=== PATIENT | male | born 1990 | race African-American/Black ===

== ENCOUNTER 2017-03-11 04:24 | Emergency (ER) | payer SELFPAY ==
[2017-03-11] MEDS ORDERED: Ketorolac Tromethamine 30 MG/ML VIAL ONE (04:59)
== END 2017-03-11 05:19 | disposition home or self-care (01) ==
LOC: ERS 04:24
DX: K08.89 Other specified disorders of teeth and supporting structures (principal); I10 Essential (primary) hypertension
CPT/HCPCS: 96372; J1885

== ENCOUNTER 2017-07-19 12:46 | Emergency (ER) | payer SELFPAY ==
[2017-07-19] MEDS ORDERED: Bupivacaine 0.5% 10 ML VIAL ONE (14:13)
[2017-07-19] MEDS ORDERED: Lidocaine 2% 10 ML INJ ONE (14:13)
== END 2017-07-19 15:13 | disposition home or self-care (01) ==
LOC: ERS 12:46
DX: K04.7 Periapical abscess without sinus (principal); I10 Essential (primary) hypertension
CPT/HCPCS: 41800; J3490

== ENCOUNTER 2017-09-28 13:24 | Emergency (ER) | payer SELFPAY | END 2017-09-28 15:12 | disposition home or self-care (01) | LOC: ERS 13:24 | DX: S90.211A Contusion of right great toe with damage to nail, initial encounter (principal); W22.8XXA Striking against or struck by other objects, initial encounter | CPT/HCPCS: 99283 ==

== ENCOUNTER 2018-05-30 17:12 | Emergency (ER) | payer SELFPAY | END 2018-05-30 17:44 | disposition home or self-care (01) | LOC: SCSER 17:12 | DX: M79.641 Pain in right hand (principal) | CPT/HCPCS: 99281 ==

== ENCOUNTER 2018-07-02 07:03 | Emergency (ER) | payer SELFPAY ==
[2018-07-02 08:08] LABS: Bilirubin Negative (Negative); Blood, Urine Negative (Negative); Clarity CLEAR (Clear); Glucose, Urine (Dipstick) Negative (Negative); Leukocyte Negative (Negative); Nitrite Negative (Negative); Protein, Urine (Dipstick) Negative (Neg-Trace); Specific Gravity, Urine 1.026 (1.002-1.036); pH, Urine 6.5 (5.0-9.0)
[2018-07-02 08:14] LABS: ALT (SGPT) 16 U/L (8-55); AST (SGOT) 21 U/L (5-34); Albumin 3.7 g/dL (3.5-5.0); Alkaline Phosphatase 28 U/L (40-150); Anion Gap 8 mmol/L (10-20); BUN (Urea Nitrogen) 15 mg/dL (8.9-20.6); Bilirubin, Total 0.7 mg/dL (0.2-1.2); Calc. Creatinine Clearance 0 mL/min (70-130); Carbon Dioxide 30 mmol/L (22-29); Chloride 108 mmol/L (98-107); Estimated GFR-MDRD 80; Globulin 2.5 g/dL (2.4-3.5); Glucose 83 mg/dL (70-105); Potassium 4.2 mmol/L (3.5-5.1); Protein, Total 6.2 g/dL (6.0-8.3); Sodium 142 mmol/L (136-145)
[2018-07-02 08:32] LABS: #Basophils 0.1 thou/uL (0.0-0.2); #Eosinphils 0.4 thou/uL (0.0-0.7); #Monocytes 0.9 thou/uL (0.11-0.59); #Neutrophils 4.4 thou/uL (1.40-6.50); %Basophils 0.9 % (0.0-1.0); %Eosinophils 5.1 % (0.0-10.0); %Lymphocytes 34.3 % (21.0-51.0); %Neutrophils 49.7 % (42.0-75.0); Band 1 % (5-11); Eosinophils 11 % (0-10); Lymphocytes 50 % (21-51); MDiff Complete? YES; Mean Corpuscular HGB CONC 32.7 g/dL (32.0-36.0); Mean Corpuscular Hemoglobin 27.1 pg (27.0-31.0); Mean Corpuscular Volume 82.8 fL (78.0-98.0); Mean Platelet Volume 9.1 fL (7.4-10.4); Monocytes 2 % (0-10); Neutrophil 36 % (42-75); Platelet Count 165 thou/uL (130-400); Red Blood Cell (RBC) Count 5.52 mill/uL (4.70-6.10); White Blood Cell (WBC) Count 8.7 thou/uL (4.8-10.8)
--- NOTE | 2018-07-02 09:15 | CT ---
CT OF ABDOMEN AND PELVIS PERFORMED WITHOUT CONTRAST ENHANCEMENT: Date: 07/02/18 HISTORY: Left flank pain, onset 2 days ago. FINDINGS: Lung bases are clear. The liver, spleen, pancreas, and gallbladder regions appear unremarkable. Right and left adrenal glands, and right and left kidneys are normal in size. No obstruction or renal calculi. No significant periaortic or mesenteric adenopathy, and no signs of any free fluid. No ashok l wall findings. CT of pelvis was performed without contrast enhancement. There is no adenopathy or mass. Difficult to evaluate for free fluid given the presence of some small bowel loops deeper within the pelvis. The a ppendix is also difficult to identify given the lack of intra-abdominal fat, although no abnormalitie s are noted. No signs of any fractures of the bony pelvic ring. IMPRESSION: No acute abnormalities of the abdomen or pelvis given limitations of a noncontrast study. POS: [facility]
== END 2018-07-02 09:35 | disposition home or self-care (01) ==
LOC: ERS 07:03
DX: S39.012A Strain of muscle, fascia and tendon of lower back, initial encounter (principal); R10.9 Unspecified abdominal pain; X58.XXXA Exposure to other specified factors, initial encounter
CPT/HCPCS: 36415; 74176; 80053; 81003; 85025

== ENCOUNTER 2021-06-02 13:44 | Emergency (ER) | payer SELFPAY | END 2021-06-02 14:15 | disposition home or self-care (01) | LOC: ERS 13:44 | DX: K03.81 Cracked tooth (principal); K02.9 Dental caries, unspecified; K04.7 Periapical abscess without sinus | CPT/HCPCS: 99282 ==